=== PATIENT | male | born 1970 | race Caucasian/White ===

== ENCOUNTER 2019-08-31 14:48 | Outpatient (CLI) | payer OTHER, SELFPAY ==
--- NOTE | 2019-08-31 14:50 | ECG_ITS ---
Measurements Intervals [place] Rate: 62 P: 31 OK: 161 QRS: 42 QRSD: 92 T: 30 QT: 399 QTc: 407 Interpretive Statements SINUS RHYTHM VENTRICULAR PREMATURE COMPLEX DELAYED PRECORDIAL R/S TRANSITION BASELINE ARTIFACT- I BORDERLINE ECG Electronically Signed On 08-31-2019 15:12:23 CDT by Ad Pearl D.O.
== END 2019-08-31 14:49 | disposition home or self-care (01) ==
LOC: ANHSURGERY 14:50
PROVIDERS: PCP Family Medicine; Visit Provider Surgery
DX: I10 Essential (primary) hypertension (principal); R94.31 Abnormal electrocardiogram [ECG] [EKG]
CPT/HCPCS: 93005

== ENCOUNTER 2019-09-07 00:22 | Outpatient (CLI) | payer OTHER, SELFPAY ==
[2019-09-07 20:03] LABS: SARS-CoV-2 RNA PCR Negative
== END 2019-09-07 00:23 | disposition home or self-care (01) ==
LOC: ANHCOVIDDT 00:23
PROVIDERS: PCP Family Medicine; Visit Provider Surgery
DX: Z01.812 Encounter for preprocedural laboratory examination (principal); Z11.59 Encounter for screening for other viral diseases
CPT/HCPCS: 87635; C9803; U0003

== ENCOUNTER 2019-09-09 02:06 | Day surgery (SDC) | payer OTHER, SELFPAY ==
[2019-08-28 10:06] VITALS: BMI 26.4
--- NOTE | 2019-09-09 08:01 | PM.HPGS ---
History of Present Illness History of Present Illness Consent: Risks, benefits, and alternatives of excision of 2 subcutaneous masses have been discussed and questions answered. Patient agrees to proceed with procedure. Chief complaint: Upper Mid Back Mass/ Left Post Auricular Mass Narrative: Dalton Mena is a 49 year old male that presented recently to the office at the request of Dr Garcia for an evaluation of two masses, one at the base of his neck and one behind his left ear. He reports he has had the one at the base of his neck for many years, he reports he does not notice it much because of the location and not causing any problems. He reports it has grown some over the years. He reports the one behind his left ear he has noticed over the last few months. He reports that neither have ever drained. Denies any other masses on his body currently or in the past. He does reports he has recently had more headaches in the back of his head, and that is the reason he had mentioned these areas to his PCP. Other medical history includes diabetes, GERD, and hypertension. Review of Systems Constitutional: Constitutional: Reports no additional constitutional complaints and Denies frequent falls Eyes: Eyes: Reports as per HPI ENT: Reports Normal hearing present, Denies dizziness and Reports other (Mucous membranes moist.) Cardiovascular: Cardiovascular: Denies chest pain, Denies palpitations, Denies dyspnea and Denies dyspnea on exertion Respiratory: Respiratory: Denies hemoptysis, Denies dyspnea, Denies dyspnea on exertion and Denies wheezing Gastrointestinal: Gastrointestinal: Reports no additional gastrointestinal complaints, Reports belching and Reports heartburn ( he has known GERD and takes Omeprazole for this) Genitourinary: Genitourinary: Denies hematuria, Denies nocturia and Denies urinary frequency Musculoskeletal: Musculoskeletal: Denies deformity and Reports other ( no clubbing,cyanosis, or edema) Integumentary/Breasts: Skin/Breast: Denies new lesions, Denies rash and Denies unusual bruising Neurologic: Reports Normal hearing present, Denies dizziness, Denies frequent falls, Denies memory loss and Denies seizure-like activity Psychiatric: Psychiatric: Denies memory loss and Reports other ( normal mood and mental status) Endocrine: Endocrine: Reports as per HPI, Denies cold intolerance and Denies palpitations Comments: He has type 2 diabetes and is on metformin and glipizide. 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 Gender identity (if verbalized by the patient): Male Meds Home Medications and Allergies Home Medications Medication Instructions Recorded Confirmed Type aspirin 81 mg tablet,delayed 81 mg PO DAILY 01/22/19 08/28/19 History release omega-3 fatty acids 1,000 mg 1,000 mg PO BID PRN cap 01/22/19 09/09/19 History capsule omeprazole 40 mg capsule,delayed 40 mg PO DAILY 01/22/19 09/09/19 History release canagliflozin 300 mg tablet 300 mg PO DAILY #90 tablet 04/28/19 08/28/19 Rx irbesartan 150 mg tablet 150 mg PO DAILY #90 tablet 05/06/19 09/09/19 Rx glipizide 5 mg tablet, extended 5 mg PO DAILY #90 tablet 05/20/19 09/09/19 Rx release 24 hr metformin 500 mg tablet,extended 1,000 mg PO QPM #180 tablet 07/28/19 09/09/19 Rx release 24 hr atorvastatin 10 mg PO HS 08/28/19 08/28/19 History ibuprofen-diphenhydramine HCl 1 - 2 cap PO HS PRN 08/28/19 09/09/19 History [Ibuprofen PM] multivitamin 1 tablet PO DAILY 08/28/19 09/09/19 History niacin 1,
[2019-09-09 10:10] VITALS: BP 113/78; PULSE 74; RESP 20; TEMP 36.3; O2SAT 98
--- NOTE | 2019-09-09 10:11 | P.PNAN_ITS ---
Anes - Initial Pre Proc Eval Procedure: Operation Date: 09/09/19 12:00 Proposed Procedures p Excision Mass Upper Mid Back, Excision Mass Post Left Postauricular Area - Serafin Gracia MD Date/Time: 09/09/19 10:11 Surgeon: Serafin Gracia MD Pre Op Diagnosis: Upper Mid Back Mass/ Left Post Auricular Mass Patient Data Age: 49 Gender: M Height: 5 ft 11 in Weight: 86.16 kg Allergies Allergy/AdvReac Type Severity Reaction Status Date / Time No Known Allergies Allergy Verified 08/28/19 10:07 Home Medications Medication Instructions Recorded Confirmed Type aspirin 81 mg tablet,delayed 81 mg PO DAILY 01/22/19 08/28/19 History release omega-3 fatty acids 1,000 mg 1,000 mg PO BID PRN cap 01/22/19 08/28/19 History capsule omeprazole 40 mg capsule,delayed 40 mg PO DAILY 01/22/19 08/28/19 History release canagliflozin 300 mg tablet 300 mg PO DAILY #90 tablet 04/28/19 08/28/19 Rx irbesartan 150 mg tablet 150 mg PO DAILY #90 tablet 05/06/19 08/28/19 Rx glipizide 5 mg tablet, extended 5 mg PO DAILY #90 tablet 05/20/19 08/28/19 Rx release 24 hr metformin 500 mg tablet,extended 1,000 mg PO QPM #180 tablet 07/28/19 08/28/19 Rx release 24 hr atorvastatin 10 mg PO HS 08/28/19 08/28/19 History ibuprofen-diphenhydramine HCl 1 - 2 cap PO HS PRN 08/28/19 08/28/19 History [Ibuprofen PM] multivitamin 1 tablet PO DAILY 08/28/19 08/28/19 History niacin 1,000 mg PO HS 08/28/19 08/28/19 History Patient hx anesthesia problems: none Family hx anesthesia problems: none PMFSH Social History Social History Smoking status: Never smoker Second hand tobacco smoke exposure: No Alcohol intake: never Substance use: never Substance use type: does not use 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 Questions were solicited and answers provided to the satisfaction of the patient/family/POA.
[2019-09-09] MEDS: LACTATED RINGERS 1,000 ML 30 ML IV CONT ×2 (10:40→13:40)
[2019-09-09 10:42] LABS: Glucose Point of Care 146 (65-105)
[2019-09-09] MEDS: ceFAZolin 2 GM/D5W 50 ML 2 GM/50 ML BAG IVPB (11:57)
[2019-09-09] MEDS: BUPIVACAINE/EPINEPHRINE 0.5% 30 ML VIAL 20 ML INFILTRATE (12:39)
[2019-09-09 13:40] VITALS: BP 117/67; PULSE 64; RESP 20; O2SAT 96
--- NOTE | 2019-09-09 13:40 | PM.PROC ---
Procedure Note - Detailed Date of procedure: 09/09/19 Pre-op diagnosis: Upper Mid Back Mass/ Left Post Auricular Mass Post-op diagnosis: same Procedure performed: Excision of subcutaneous mass upper mid back (8.5 x 6.0 cm). Excision of left postauricular subcutaneous mass (3.5 x 2.0). Description of procedure: The patient was placed in the right lateral decubitus position. This exposed nicely both lesions behind his left ear and upper central back. After a surgical time out confirming patient and procedure the patient was prepped and draped in the usual sterile fashion. I 1st did the lesion behind his left ear. Local anesthetic was administered subcutaneously. The lesion measured 2.5 cm in diameter. An elliptical incision was made around the lesion taking a thin margin circumferentially. I dissected down to the deep subcutaneous tissues and then completely excised the lesion. At its base there did seem to be what appeared to be a lipoma densely adhered to the underlying muscle. This was dissected off with the skin ellipse and passed off the field after removal it measured 3.5 x 2.2 cm. Bleeding was controlled with electrocautery. The wound was closed in two layers. An un-dyed 3-0 vicryl deep dermal and then a 4-0 undyed Monocryl running subcuticular closure was completed. Surgical glue applied as dressing. The second lesion was larger and on the upper mid back. This had a small pore- like opening over it. I suspected that this is a long-standing epidermal cyst. Therefore, I decided to make a vertical oriented incision that was elliptical, including about a 4.5 x 2 cm skin ellipse that included this pore-like opening. Following instillation of local anesthetic we carefully made this incision and began dissecting it out laterally raising skin flaps both to the right into the left. I periodically added further local anesthetic surrounding this lesion both lateral and deep to it. I then dissected it off the underlying fascia from inferior to superior carefully so circumventing the entire palpable mass. I believe this is either a large epidermal cyst or perhaps a lipoma. It was densely adherent to the underlying fascia. Upon removal it measured 8.5 by 6 cm. Bovie cautery was used for hemostasis and for dissecting it out. This was closed in layers using interrupted 2-0 Vicryl in subcutaneous layer. I then used for 3-0 nylon vertical mattress sutures spaced out along the incision to give it support and we did a running subcuticular closure of 4-0 Monocryl in subcuticular plane. Telfa 4x4s and microphone tape were applied over this incision and ice was applied to it in the recovery room. Estimated blood loss was about 30 cc. Patient tolerated this well. Anesthesia: local (0.5% Marcaine with epinephrine) and other (G IV S) Surgeon: Serafin Gracia MD Coal Equipment Operator: JOSE Martinez, OR 1st assist Estimated blood loss (mL): 30 Drains: No Pathology: yes (1. Subcutaneous mass from upper mid back 2. Subcutaneous mass from left postauricular area) Complications: No immediate complications Condition: stable Disposition: same day Findings: The subcutaneous mass on the upper mid back was fairly large and did not drain any purulence during excision and seemed to be densely adhered to the underlying fascia in the midline.
[2019-09-09 14:10] VITALS: BP 118/83; PULSE 55; RESP 14
[2019-09-09 14:40] VITALS: BP 116/71; PULSE 57; RESP 14
[2019-09-09 14:42] LABS: Glucose Point of Care 109 (65-105)
== END 2019-09-09 15:00 | disposition home or self-care (01) ==
PROVIDERS: PCP Family Medicine; Visit Provider Surgery
PROC: (CPT 21012; principal; 2019-09-09 12:00)
DX: L72.0 Epidermal cyst (principal); D17.0 Benign lipomatous neoplasm of skin and subcutaneous tissue of head, face and neck; E11.9 Type 2 diabetes mellitus without complications; I10 Essential (primary) hypertension; K21.9 Gastro-esophageal reflux disease without esophagitis; Z79.84 Long term (current) use of oral hypoglycemic drugs; Z79.82 Long term (current) use of aspirin
CPT/HCPCS: 21012; 11406; 12034; 87635; 88304; C9803; J0690; J2250; J2370; J2405; J2704; J3010; J7120; U0003

== ENCOUNTER 2020-02-18 12:02 | Outpatient (CLI) | payer OTHER, SELFPAY ==
[2020-02-18 12:45] LABS: Add Urine Microscopic? YES; Appearance Urine Clear (Clear); Bilirubin Urine Negative (Negative); Blood Urine Negative (Negative); Color Urine Straw (Yellow); Glucose Urine UA 1+ mg/dL (Negative); Ketones Urine Negative (Negative); Leukocyte Esterase Ur Negative LEU/UL (Negative); Mucus Urine Rare /lpf; Nitrate Urine Negative (Negative); Protein Urine Negative (Negative); RBC Urine 0-2 /hpf (0-2); Urobilinogen Urine Negative mg/dL (<2.0); WBC Urine 0-3 /hpf
== END 2020-02-18 12:03 | disposition home or self-care (01) ==
LOC: ANHLAB 12:05
PROVIDERS: PCP Family Medicine; Visit Provider Family Medicine
DX: R30.0 Dysuria (principal)
CPT/HCPCS: 81001

== ENCOUNTER 2020-10-31 07:37 | Outpatient (CLI) | payer OTHER, SELFPAY ==
--- NOTE | ~2020-10-31 | NM_ITS ---
EXAM: NM gastric emptying study DATE: 10/31/2020 12:05 INDICATION: Unspecified abdominal pain. TECHNIQUE: A gastric emptying study was performed using the methodology of Thomas MACNIA, et al. J Nucl Med 2007; 48:568-572. The patient was given a meal consisting of 2 scrambled eggs labeled with 1 mCi Tc-99m sulfur colloid, 2 slices of toast, two packages of jam, and approximately 120 mL of water. Si multaneous anterior and posterior 1-min images of the abdomen were obtained with the patient supine a t multiple time points over a total period of 4 hours. The geometric mean of anterior and posterior v iews was determined, and the percentage retention was calculated for each time point. COMPARISON: None. FINDINGS: Gastric retention of the radiotracer-labeled meal was 83%, 70%, and 48% at the 1-hour, 2-hour, and 4- hour time points, respectively. With this technique, apparent rapid gastric emptying is suggested by <30% gastric retention at 1 hour. Delayed gastric emptying is defined by gastric retention of >90% at 1 hour, >60% retention at 2 hours, or >10% retention at 4 hours. IMPRESSION: 1. Delayed gastric emptying. Reviewed, dictated and finalized at location A.
== END 2020-10-31 07:38 | disposition home or self-care (01) ==
LOC: ANHIMG 07:42
PROVIDERS: PCP Family Medicine; Visit Provider Family Medicine
DX: R10.9 Unspecified abdominal pain (principal); R11.0 Nausea; E11.9 Type 2 diabetes mellitus without complications; K30 Functional dyspepsia
CPT/HCPCS: 78264; A9541

== ENCOUNTER 2021-01-03 02:28 | Day surgery (SDC) | payer OTHER, SELFPAY ==
[2020-12-20 13:01] VITALS: BMI 25.1
[2021-01-03 06:57] VITALS: BP 163/81; PULSE 102; RESP 18; TEMP 36.1; O2SAT 98
[2021-01-03] MEDS: LACTATED RINGERS 1,000 ML 150 ML IV CONT (07:08)
[2021-01-03 07:09] LABS: Glucose Point of Care 190 mg/dl (65-105)
[2021-01-03] MEDS: ONDANSETRON INJ 4 MG/2 ML VIAL IV PUSH (07:17)
--- NOTE | 2021-01-03 07:22 | WPDANESEPPF ---
Anes - Initial Pre Proc Eval Procedure: Operation Date: 01/03/21 08:00 Proposed Procedures p Esophagogastroduodenoscopy & Colonoscopy - Lamin Steiner MD Date/Time: 01/03/21 07:22 Surgeon: Lamin Steiner MD Pre Op Diagnosis: GERD, nausea/vomiting,family hx of colon ca Patient Data Age: 50 Gender: M Height: 1.82 m Weight: 80.7 kg Last Vital Signs Temp 36.1 C L 01/03/21 06:57 Pulse 102 H 01/03/21 06:57 Resp 18 01/03/21 06:57 BP 163/81 H 01/03/21 06:57 Pulse Ox 98 01/03/21 06:57 Allergies Allergy/AdvReac Type Severity Reaction Status Date / Time amoxicillin [From Augmentin] AdvReac Rash Verified 01/03/21 06:55 clavulanic acid AdvReac Rash Verified 01/03/21 06:55 [From Augmentin] Home Medications Medication Instructions Recorded Confirmed Type metformin 500 mg tablet,extended 1,000 mg PO QPM tablet 07/25/20 12/20/20 History release 24 hr niacin 1,000 mg tablet,extended 1,000 mg PO HS #90 tablet 07/28/20 12/20/20 Rx release 24 hr losartan 100 1 tablet PO DAILY #90 tablet 09/19/20 12/20/20 Rx mg-hydrochlorothiazide 25 mg tablet omeprazole 40 mg capsule,delayed 40 mg PO DAILY #90 cap 10/17/20 12/20/20 Rx release erythromycin 250 mg tablet 250 mg PO BID PRN #30 tablet 12/12/20 12/20/20 Rx aspirin [Aspirin Child] 81 mg PO DAILY 12/20/20 12/20/20 History atorvastatin 10 mg tablet 10 mg PO QHS #90 tablet 12/20/20 01/03/21 Rx glipizide 20 mg PO DAILY 12/20/20 12/20/20 History ibuprofen-diphenhydramine HCl 1 cap PO HS PRN 12/20/20 12/20/20 History [Ibuprofen PM] Laboratory Tests 01/03/21 07:04 POC Capillary Glucose 190 mg/dl H mg/dl (65-105) Patient hx anesthesia problems: none Family hx anesthesia problems: none Results Review: All pre-operative results and documents have been reviewed as part of the pre-operative evaluation. [facility] Past Medical History Medical History (Updated 12/12/20 @ 15:44 by Lamin Steiner MD) Alopecia areata Dyslipidemia Epidermal cyst Family history of colon cancer in mother GERD (gastroesophageal reflux disease) (Unknown) Ingrown right greater toenail Lipoma Type 2 diabetes mellitus without complication, without long-term current use of insulin (Unknown) Surgical History Surgical History History of epidermal inclusion cyst excision 09/2019 - left scalp Hx of colonoscopy (Unknown) x2 S/P excision of lipoma 09/2019 - upper back Family History Family History Grandparent Hypertension Family history of cardiovascular disease Family history of Alzheimer's disease Mother Carcinoma of colon, Onset Age: 57 Family history of malignant neoplasm of breast in first degree relative, Onset Age: 50 Father COPD (chronic obstructive pulmonary disease) Hypertension Social History Social History Smoking status: Never smoker Second hand tobacco smoke exposure: No Alcohol intake: never Substance use: never Substance use type: does not use 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 Informed Consent: The patient's anesthetic plan and its attendant risks and benefits were discussed with the patient/family/POA. Questions were solicited and answers provided to the satisfaction
--- NOTE | 2021-01-03 07:51 | WPDHPUPDATE1 ---
History and Physical Update Update Date/Time: 01/03/21 07:51 History and Physical has been reviewed, including an updated exam of the patient. There are NO changes in the patient's condition. Risks, benefits, and alternatives have been discussed and questions answered. Patient agrees to proceed with procedure.
[2021-01-03 08:35] VITALS: BP 96/69; PULSE 90; RESP 18; O2SAT 96
[2021-01-03 08:45] VITALS: BP 110/76; PULSE 87; RESP 16; O2SAT 99
== END 2021-01-03 09:10 | disposition home or self-care (01) ==
PROVIDERS: PCP Family Medicine; Visit Provider Internal Medicine Gastroenterology
PROC: 0DJ08ZZ Inspection of Upper Intestinal Tract, Via Natural or Artificial Opening Endoscopic (ICD-10-PCS; CPT 43235; principal; 2021-01-03 08:00)
DX: Z12.11 Encounter for screening for malignant neoplasm of colon (principal); Z80.0 Family history of malignant neoplasm of digestive organs; R11.2 Nausea with vomiting, unspecified; K21.9 Gastro-esophageal reflux disease without esophagitis; K59.00 Constipation, unspecified; L63.9 Alopecia areata, unspecified; E11.9 Type 2 diabetes mellitus without complications; E11.43 Type 2 diabetes mellitus with diabetic autonomic (poly)neuropathy; K31.84 Gastroparesis; K57.30 Diverticulosis of large intestine without perforation or abscess without bleeding; Z79.82 Long term (current) use of aspirin; Z79.84 Long term (current) use of oral hypoglycemic drugs
CPT/HCPCS: 43239; G0105; 82948; 87081; J2405; J7120

== ENCOUNTER 2021-06-05 11:21 | Outpatient (CLI) | payer OTHER, SELFPAY ==
[2021-06-05 16:45] LABS: Anion Gap 7 mmol/L (8-16); Blood Urea Nitrogen 19 mg/dL (9-20); Calcium 9.1 mg/dL (8.4-10.2); Carbon Dioxide 28 mmol/L (22-30); Chloride 104 mmol/L (98-107); Estimated Glomerular Filt Rate > 60; Glucose 228 mg/dL (65-110); HDL Direct 29 mg/dL; Potassium 3.5 mmol/L (3.4-5.0); Sodium 139 mmol/L (137-145)
[2021-06-05 17:04] LABS: Creatinine Urine 61.3 mg/dL
[2021-06-05 17:07] LABS: LDL Cholesterol Direct 60 mg/dL
[2021-06-05 17:47] LABS: MALB Creatinine Ratio < 9.8 mg/g (0-30); Microalbumin Urine Random < 6.0 mg/L (0-16.7)
[2021-06-07 06:35] LABS: C-Peptide 3.95 ng/mL (0.80-3.85)
[2021-06-08 14:40] LABS: Glutamic acid decarboxylase AA <5 IU/mL (<5)
== END 2021-06-05 11:22 | disposition home or self-care (01) ==
LOC: ANHWCLAB 11:24
PROVIDERS: PCP Family Medicine; Referring Provider Internal Medicine Endocrinology, Diabetes & Metabolism; Visit Provider Internal Medicine Endocrinology, Diabetes & Metabolism
DX: E11.43 Type 2 diabetes mellitus with diabetic autonomic (poly)neuropathy (principal); K31.84 Gastroparesis
CPT/HCPCS: 36415; 80048; 82043; 83718; 83721; 84681; 86341

== ENCOUNTER 2021-09-11 09:17 | Outpatient (RCR) | payer OTHER, SELFPAY | END 2021-11-27 10:51 | disposition home or self-care (01) | LOC: ANHDMC 09:17 | PROVIDERS: PCP Family Medicine; Visit Provider Internal Medicine Endocrinology, Diabetes & Metabolism | DX: E11.9 Type 2 diabetes mellitus without complications (principal); Z71.89 Other specified counseling | CPT/HCPCS: G0108 ==

== ENCOUNTER 2022-04-30 10:08 | Outpatient (CLI) | payer OTHER, SELFPAY ==
[2022-04-30 10:49] LABS: Kit Draw Collected
== END 2022-04-30 10:09 | disposition home or self-care (01) ==
LOC: ANHGOSHLAB 10:09
PROVIDERS: PCP Family Medicine; Visit Provider Nurse Practitioner Family
DX: Z00.00 Encounter for general adult medical examination without abnormal findings (principal); E78.5 Hyperlipidemia, unspecified; Z12.5 Encounter for screening for malignant neoplasm of prostate; I10 Essential (primary) hypertension; E11.9 Type 2 diabetes mellitus without complications; E55.9 Vitamin D deficiency, unspecified
CPT/HCPCS: 36415

== ENCOUNTER → 2022-10-09 08:07 | Outpatient (CLI) | payer OTHER, SELFPAY ==
--- NOTE | ~2022-10-09 | XR_ITS ---
Left Shoulder Technique: AP and axillary views were obtained. Clinical History: Pain Findings: No fracture or dislocation is seen. Osseous alignment is anatomic. The glenohumeral and acr omioclavicular joint spaces are preserved. Soft tissues are unremarkable. Impression: Unremarkable left shoulder radiographs. Reviewed, dictated and finalized at [facility]. Impression: Unremarkable left shoulder radiographs.
== END ==
PROVIDERS: PCP Family Medicine; Visit Provider Nurse Practitioner Family
DX: M79.602 Pain in left arm (principal)
CPT/HCPCS: 73030

== ENCOUNTER 2022-11-11 13:14 | Emergency (ER) | payer OTHER, SELFPAY ==
--- NOTE | ~2022-11-11 | CT_ITS ---
EXAMINATION: CTA neck DATE: 11/11/2022 17:50 INDICATION: Neck injury TECHNIQUE: Computed tomographic angiography (CTA) of the neck was performed with 100 mL Omnipaque-350 intravenous contrast. Automated exposure control and iterative reconstruction technique were noemy greer . The dose-length product was 566.90 mGy-cm. Maximum intensity projection and volume rendered 3D- reconstructions were created by the technologist on a separate workstation. COMPARISON: CT C-spine and soft tissue neck, same date. FINDINGS: CTA NECK: Aortic arch and proximal great vessels: Normal arch. Right common carotid, carotid bifurcation, and internal carotid artery: No plaque.There is 0% stenosi s of the proximal right internal carotid artery relative to normal distal artery lumen diameter (NASC ET criteria). Left common carotid, carotid bifurcation, and internal carotid artery: No plaque.There is 0% stenosis of the proximal left internal carotid artery relative to normal distal artery lumen diameter (NASCET criteria). Vertebral arteries: No significant plaque or stenosis. No evidence of dissection or other injury. Kristal tebral arteries co-dominant. Other findings: None. IMPRESSION: Normal CTA neck findings. The prior CT findings were likely related to beam hardening artifact. Reviewed, dictated and finalized at location K. IMPRESSION: Normal CTA neck findings. The prior CT findings were likely related to beam liset dening artifact.
--- NOTE | ~2022-11-11 | CT_ITS ---
EXAMINATION: CT soft tissue neck w con DATE: 11/11/2022 15:45 INDICATION: TECHNIQUE: Computed tomography (CT) of the neck was performed with 75 mL Omnipaque-350 intravenous co ntrast. The dose-length product was 575.29 mGy-cm. COMPARISON: None FINDINGS: 6 mm right thyroid nodule, requiring no additional evaluation at this time. The submandibular and pa rotid glands are symmetric. There is no cervical lymphadenopathy. There are no masses identified. The superior mediastinum is unremarkable. The airway is unremarkable. Parapharyngeal and pre-g lottic fat planes are preserved. Possible weblike defect in the V3 segment of the right vertebral a rtery (coronal image 63/112), which may extend into the V4 segment. The orbits are unremarkable. V olume loss and opacification of the left maxillary sinus, presumably chronic. The remaining aerated s paces are clear. Visualized lung parenchyma is clear. The hyoid bone is intact. Fractures of the martin perior horns of the thyroid cartilage. Soft tissue contusion/scar in the right posterior neck. IMPRESSION: Possible dissection of the V3 segment of the right vertebral artery, extending into the V4 segment. R ecommend dedicated CTA of the neck for further evaluation. Fractures of the superior horns of the thyroid cartilage. Results reported telephonically to Dr. King by Dr. Henao at 4:34 PM on 11/11/2022. Reviewed, dictated and finalized at location K. IMPRESSION: Possible dissection of the V3 segment of the right vertebral artery, extending into the V4 segment. Recommend dedicated CTA of the neck for further evaluation . Fractures of the superior horns of the thyroid cartilage. Results reported telephonically to Dr. King by Dr. Henao at 4:34 PM on 11/02.
--- NOTE | ~2022-11-11 | CT_ITS ---
EXAMINATION: CT cervical spine wo con DATE: 11/11/2022 15:44 INDICATION: Injury to neck TECHNIQUE: Computed tomography (CT) of the cervical spine was performed without intravenous contrast. Automated exposure control and iterative reconstruction technique were employed. The dose-length pro duct was 575.29 mGy-cm (also includes the dose from the concurrent CT soft tissue neck). COMPARISON: X-ray C-spine 11/19/2007; CT soft tissue neck 11/11/2022. FINDINGS: Vertebral Body Alignment: Intact. Craniocervical and atlantoaxial alignment: Severe degenerative change. Alignment intact. Osseous structures/fracture: No evidence of a lytic or blastic process in the visualized spine. No e vidence of acute fracture. Cervical soft tissues: Please see the concurrent CT soft tissue neck report. Degenerative changes: Mild multilevel degenerative disc disease and facet arthropathy. No severe cent ral canal or neural foraminal narrowing. IMPRESSION: No acute fracture or traumatic malalignment in the cervical spine. Reviewed, dictated and finalized at location K.
[2022-11-11 13:37] VITALS: BP 119/79; PULSE 74; RESP 20; TEMP 36.4; O2SAT 99
[2022-11-11 14:52] LABS: Anion Gap 7 mmol/L (8-16); Blood Urea Nitrogen 22 mg/dL (9-20); Calcium 9.5 mg/dL (8.4-10.2); Carbon Dioxide 31 mmol/L (22-30); Chloride 101 mmol/L (98-107); Estimated CRCL calculation 88 ml/min; Estimated Glomerular Filt Rate > 60; Glucose 120 mg/dL (65-110); Potassium 4.3 mmol/L (3.4-5.0); Sodium 139 mmol/L (137-145)
--- NOTE | 2022-11-11 16:36 | ED.GENADULT ---
HPI - General Adult General Chief complaint: Unspecified Stated complaint: struck in throat Time Seen by Provider: 11/11/22 14:11 History of Present Illness HPI narrative: This is a 52-year-old male, past history of diabetes, presenting to the emergency department after being struck by metal bar in the anterior neck. The patient states he was repairing a lawnmower, when a metal piece flew out and hit him in the neck. He complains of sore-like pain with swallowing and speaking, rated 4/10 without radiation, located just left of the cricoid cartilage, but he has no other complaints. Related Data Home Medications Medication Instructions Recorded Confirmed aspirin 81 mg chewable tablet 81 mg PO DAILY 12/20/20 08/23/22 ibuprofen 200 mg-diphenhydramine 1 cap PO HS Sleep 08/28/21 08/23/22 HCl 25 mg capsule (Ibuprofen PM) omeprazole 40 mg capsule,delayed 40 mg PO DAILY PRN 08/28/21 08/23/22 release cholecalciferol (vitamin D3) 125 125 mcg PO DAILY 04/30/22 08/23/22 mcg (5,000 unit) capsule Allergies Allergy/AdvReac Type Severity Reaction Status Date / Time amoxicillin [From Augmentin] AdvReac Rash Verified 11/11/22 13:40 clavulanic acid AdvReac Rash Verified 11/11/22 13:40 [From Augmentin] Review of Systems Review of Systems: All systems reviewed & are unremarkable except as noted in HPI and below (HPI) PMFSH Past Medical History Medical History Alopecia areata Chronic cough Diabetic gastroparesis Diverticulosis Dyslipidemia Epidermal cyst Essential (primary) hypertension (Unknown) Family history of colon cancer in mother GERD (gastroesophageal reflux disease) (Unknown) Ingrown right greater toenail Lipoma Low vitamin D level Type 2 diabetes mellitus without complication, without long-term current use of insulin (Unknown) Surgical History Surgical History H/O endoscopy History of epidermal inclusion cyst excision 09/2019 - left scalp Hx of colonoscopy (Unknown) x2 S/P excision of lipoma 09/2019 - upper back Family History Family History Grandparent Hypertension Family history of cardiovascular disease Family history of Alzheimer's disease Mother Carcinoma of colon, Onset Age: 57 Family history of malignant neoplasm of breast in first degree relative, Onset Age: 50 Father COPD (chronic obstructive pulmonary disease) Hypertension Social History Social History Social History: [place] is , 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 HEAD: Normocephalic, atraumatic. EYES: PERRLA and EOMI. ENT: Nares clear, no rhinorrhea or epistaxis. Mucous membranes moist. Oropharynx without tonsillar hypertrophy exudate or other lesions. NECK: Supple. A small amount of swelling in an area of approximately 3 mm of ecchymosis is noted just to the left of the cricoid cartilage. There is no noted crepitus, stridor or expanding hematoma. No adenopathy or masses. No carotid bruits or JVD. No midline spine ten
[2022-11-11 18:38] VITALS: BP 114/82; PULSE 71; RESP 18; TEMP 36.6; O2SAT 100
== END 2022-11-11 21:08 | disposition home or self-care (01) ==
PROVIDERS: Emergency Provider Preventive Medicine Aerospace Medicine; PCP Family Medicine
DX: S12.8XXA Fracture of other parts of neck, initial encounter (principal); K21.9 Gastro-esophageal reflux disease without esophagitis; E11.9 Type 2 diabetes mellitus without complications; Z79.4 Long term (current) use of insulin; I10 Essential (primary) hypertension; W20.8XXA Other cause of strike by thrown, projected or falling object, initial encounter
CPT/HCPCS: 36415; 70491; 70498; 72125; 80048; 99284; Q9967

== ENCOUNTER 2022-11-27 08:00 | Outpatient (RCR) | payer OTHER, SELFPAY ==
[2022-09-11 12:34] VITALS: BP_SYST 125
--- NOTE | 2022-09-11 15:35 | PTOPEVAL1 ---
Assessment and note entered by Devin Sterling, PT Evaluation Information Assessment Status Evaluation Diagnosis Left Shoulder Pain Onset 12/02/21 Subjective Information States that he has been getting a lot of pain with sleepin julia his side and raching over his head. Pushing and pulling also bothers his shoulder. Pain goes into his elbow but never down to his hand. He started wearing a blood sugar sensor on his left shoulder and he is wondering if that contributes. 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 Reported Pain Level Pain Score 7: Self Report Additional Pain Score Comments Pain in L Lateral shoulder 0/10 at rest Increases to 7/10 with overhead activity Assessment PT Clinical Summary Patient presents with signs and symptoms consistent with shoulder impingement. Strength is sufficient enough to rule out significant RTC tear . Showing capsular pattern in ROM and postural deficits likely causing chronic RTC trauma.Will benefit from skilled therapy to address postural deficits and objective deficits to maximize subacromial space and functional reach. Plan of Care Interventions Electrical Stimulation,Manual Therapy,Therapeutic Activities,Therapeutic Exercise PT Services Indicated Yes Treatment Frequency and 2x/week for 8 visits Duration These treatments will address the objective and functional deficits as defined above. The patient will be advanced safely and appropriately in order for the patient to progress towards his/her prior level of function. Additional exercises will be introduced and as well as a comprehensive home exercise program upon discharge, if needed, ?to ensure carryover of functional gains achieved in the clinic. This treatment plan has been reviewed and agreement upon by the patient.
--- NOTE | 2022-09-11 15:36 | OPREHPOC ---
Outpatient Therapy Plan of Care This is a Multidisciplinary Plan of Care that may contain components documented by all disciplines (PT, OT, and ST.) PT Problem 1 PT Problem #1 Knowledge Deficit PT Goal 1 Goal Patient will be independent with postural reinforcement program Target Visit 8 PT Problem 2 PT Problem #2 Pain PT Goal 1 Goal Report no pain in morning in shoulder with regular regimented sleepng habits PT Problem 3 PT Problem #3 Impaired Range of Motion PT Goal 1 Goal Patient will demonstrate 170 degrees of Left shoulder flexion for overhead reaching Target Visit 8 PT Problem 4 PT Problem #4 Impaired Range of Motion PT Goal 1 Goal Patient will demonstrate 80 degrees of L shoulder ER for improved self care Target Visit 8 PT Problem 5 PT Problem #5 Impaired Strength PT Goal 1 Goal Improve gross L shoulder strength to 4+/5 for iprove stability with lifting activity
[2022-10-08 07:59] VITALS: BP_SYST 125
--- NOTE | 2022-10-08 09:00 | PTOPPROG ---
Assessment and note entered by Devin Sterling, PT Evaluation Information Assessment Status Progress Diagnosis Left Shoulder Pain Onset 12/02/21 Subjective Information Overall he feels he is making progress with shoulder motion and strength. HE has never done rotator cuff isolated exercises and feels that they are really helping his functional progress. No concerns at this time as long as he continues to see progress. Would like his mobility to be better and more comfortable. Still having a lot of trouble reaching overhead. Assessment PT Clinical Summary We have seen some progress in shoulder ROM and strength. He is still significantly tender in gross shoulder area and continues to show signs and symptoms of impingement. Will continue to benefit from skilled therapy to continue to work towards functional goals. Strength and ROM remain significant functional deficits. Plan of Care Interventions Electrical Stimulation,Manual Therapy,Therapeutic Activities,Therapeutic Exercise PT Services Indicated Yes Treatment Frequency and 2x/week for 8 visits Duration These treatments will address the objective and functional deficits as defined above. The patient will be advanced safely and appropriately in order for the patient to progress towards his/her prior level of function. Additional exercises will be introduced and as well as a comprehensive home exercise program upon discharge, if needed, ?to ensure carryover of functional gains achieved in the clinic. This treatment plan has been reviewed and agreement upon by the patient.
--- NOTE | 2022-10-08 09:04 | OPREHPOC ---
Outpatient Therapy Plan of Care This is a Multidisciplinary Plan of Care that may contain components documented by all disciplines (PT, OT, and ST.) PT Problem 1 PT Problem #1 Knowledge Deficit PT Goal 1 Goal Patient will be independent with postural reinforcement program Target Visit 8 Progress Met Comment Reflects copliance and understanding PT Problem 2 PT Problem #2 Pain PT Goal 1 Goal Report no pain in morning in shoulder with regular regimented sleepng habits Progress Partially Met Comment Improved but not absent PT Problem 3 PT Problem #3 Impaired Range of Motion PT Goal 1 Goal Patient will demonstrate 170 degrees of Left shoulder flexion for overhead reaching Target Visit 8 Progress Partially Met Comment Progressing PT Problem 4 PT Problem #4 Impaired Range of Motion PT Goal 1 Goal Patient will demonstrate 80 degrees of L shoulder ER for improved self care Target Visit 8 Progress Partially Met Comment Progressing PT Problem 5 PT Problem #5 Impaired Strength PT Goal 1 Goal Improve gross L shoulder strength to 4+/5 for improve stability with lifting activity Progress Partially Met Comment Excellent progress at this time in all planes. Continues to show deficit.
[2022-11-01 09:51] VITALS: BP_SYST 125
--- NOTE | 2022-11-01 11:11 | OPREHPOC ---
Outpatient Therapy Plan of Care This is a Multidisciplinary Plan of Care that may contain components documented by all disciplines (PT, OT, and ST.) PT Problem 1 PT Problem #1 Knowledge Deficit PT Goal 1 Goal Patient will be independent with postural reinforcement program Target Visit 8 Progress Met Comment Reflects copliance and understanding PT Problem 2 PT Problem #2 Pain PT Goal 1 Goal Report no pain in morning in shoulder with regular regimented sleeping habits Progress Partially Met Comment Improved but not absent PT Problem 3 PT Problem #3 Impaired Range of Motion PT Goal 1 Goal Patient will demonstrate 170 degrees of Left shoulder flexion for overhead reaching Target Visit 8 Progress Partially Met Comment Progressing, still showing limitation consistent wth last progress note. Less pain at end range. PT Problem 4 PT Problem #4 Impaired Range of Motion PT Goal 1 Goal Patient will demonstrate 80 degrees of L shoulder ER for improved self care Target Visit 8 Progress Partially Met Comment Progressing. Increased ROM this progress note. PT Problem 5 PT Problem #5 Impaired Strength PT Goal 1 Goal Improve gross L shoulder strength to 4+/5 for improve stability with lifting activity Progress Partially Met Comment Continued progress at this time in all planes. Continues to show deficit.
--- NOTE | 2022-11-01 11:11 | PTOPPROG ---
Assessment and note entered by Devin Sterling, PT Evaluation Information Assessment Status Progress Diagnosis Left Shoulder Pain Onset 12/02/21 Subjective Information States that overall he is feeling like he is doing a lot better than he was originally prior to therapy. Still feels somewhat limited in mobility. He has not had any orthopedic consultation and is open to it because he would like to continue to improve but is unsure anatomically if he can. He is still really struggling to reach high over his head and away from his body. Assessment PT Clinical Summary Mr. Mena has shown some improvement in strength and selective improvement in specific ROM (mostly internal and external rotation). Still showing a lot of difficulty with flexion and abduction with a painful firm end feel. I am suspecting the possibility of structural impingement and have recommended orthopedic consult and potentially imaging to assess anatomical barriers. Will continue to benefit from skilled therapy as he has made slow but positive progress conservatively. Plan of Care Interventions Electrical Stimulation,Manual Therapy,Therapeutic Activities,Therapeutic Exercise PT Services Indicated Yes Treatment Frequency and 1x/week for 4 visits Duration These treatments will address the objective and functional deficits as defined above. The patient will be advanced safely and appropriately in order for the patient to progress towards his/her prior level of function. Additional exercises will be introduced and as well as a comprehensive home exercise program upon discharge, if needed, ?to ensure carryover of functional gains achieved in the clinic. This treatment plan has been reviewed and agreement upon by the patient.
[2022-11-27 07:59] VITALS: BP_SYST 125
== END 2022-12-10 23:59 | disposition home or self-care (01) ==
LOC: ANHGOSHPT 08:00
PROVIDERS: PCP Family Medicine; Visit Provider Internal Medicine Endocrinology, Diabetes & Metabolism
DX: M79.602 Pain in left arm (principal)
CPT/HCPCS: 97110; 97112; 97140; 97161

== ENCOUNTER → 2022-11-28 11:18 | Outpatient (CLI) | payer OTHER, SELFPAY ==
--- NOTE | ~2022-11-28 | MR_ITS ---
MRI of the left shoulder Technique: Axial proton-density fat-sat images, coronal proton density fat-sat and T2 fat-sat images, and sagittal T1-weighted and T2 fat-sat images were acquired. Clinical History: Pain Findings: There is no significant degenerative change at the AC joint. Coracoclavicular, coracoacromi al, and coracohumeral ligaments are intact. Supraspinatus and infraspinatus tendons are intact, without partial or full-thickness tear. Subscapul lani tendon is intact. Tendon of the long head of the biceps is intact. No definite labral tear identified. Probable sublabral foramen at the anterosuperior portion. Inferior glenohumeral ligament demonstrates mild thickening and increased signal. No significant dege nerative change or effusion of the glenohumeral joint. No fluid distention of the subacromial/subdelt oid bursa. No muscle atrophy or edema. Impression: Probable mild thickening and increased signal of the inferior glenohumeral ligament. This could refle ct adhesive capsulitis. Correlate clinically. Reviewed, dictated and finalized at location . Impression: Probable mild thickening and increased signal of the inferior glenohumeral liga ment. This could reflect adhesive capsulitis. Correlate clinically.
== END ==
PROVIDERS: PCP Family Medicine; Visit Provider Physician Assistant Surgical
DX: M25.512 Pain in left shoulder (principal)
CPT/HCPCS: 73221

== ENCOUNTER 2022-12-25 14:40 | Outpatient (CLI) | payer OTHER, SELFPAY ==
[2022-12-25 19:04] LABS: Basophils Absolute Auto 0.1 K/mm3 (0.0-0.1); Basophils Percent Auto 0.9 % (0.2-1.2); Eosinophils Absolute Auto 0.1 K/mm3 (0-0.3); Eosinophils Percent Auto 0.6 % (0-4.4); Hematocrit 50.9 % (42.0-52.0); Immature Granulocyte Absolute 0.03 K/mm3 (0.00-0.031); Immature Granulocyte Percent A 0.3 % (0-0.5); Lymphocytes Absolute Auto 1.94 K/mm3 (0.9-3.2); Lymphocytes Percent Auto 22.1 % (18.3-44.2); Mean Corpuscular HGB Conc 33.4 g/dl (32-36); Mean Corpuscular Hemoglobin 30.2 pg (26-34); Mean Corpuscular Volume 90.6 fl (80-100); Mean Platelet Volume 10.2 fl (7.4-10.4); Monocytes Absolute Auto 0.8 K/mm3 (0.1-0.6); Neutrophils Absolute Auto 5.9 K/mm3 (1.3-6.7); Neutrophils Percent Auto 67.1 % (45.5-73.1); Platelet Count Result 312 k/mm3 (150-375); Red Blood Count 5.62 M/mm3 (4.6-6.20); Red Cell Distribution Width 12.8 % (11.5-14.5); White Blood Count 8.8 K/mm3 (4.5-10.0)
[2022-12-25 19:25] LABS: Alanine Aminotransferase 53 U/L (6-50); Albumin Level 4.9 g/dL (3.5-5.1); Alkaline Phosphatase 94 U/L (38-126); Anion Gap 11 mmol/L (8-16); Aspartate Amino Transferase 67 U/L (17-59); Bilirubin,Total 0.9 mg/dL (0.2-1.3); Blood Urea Nitrogen 20 mg/dL (9-20); Calcium 9.5 mg/dL (8.4-10.2); Carbon Dioxide 28 mmol/L (22-30); Chloride 96 mmol/L (98-107); Estimated Glomerular Filt Rate > 60; Glucose 115 mg/dL (65-110); Potassium 3.4 mmol/L (3.4-5.0); Sodium 135 mmol/L (137-145)
== END 2022-12-25 14:41 | disposition home or self-care (01) ==
LOC: ANHGOSHLAB 14:42
PROVIDERS: PCP Family Medicine; Visit Provider Internal Medicine Endocrinology, Diabetes & Metabolism
DX: E78.5 Hyperlipidemia, unspecified (principal); D75.1 Secondary polycythemia; R74.8 Abnormal levels of other serum enzymes; Z71.3 Dietary counseling and surveillance
CPT/HCPCS: 36415; 80053; 85025

== ENCOUNTER 2023-02-18 08:00 | Outpatient (RCR) | payer OTHER, SELFPAY ==
--- NOTE | 2022-12-18 11:52 | OPREHPOC ---
Outpatient Therapy Plan of Care This is a Multidisciplinary Plan of Care that may contain components documented by all disciplines (PT, OT, and ST.) PT Problem 1 PT Problem #1 Knowledge Deficit PT Goal 1 Goal Independent with capsular stretching program. Target Visit 4 PT Problem 2 PT Problem #2 Pain PT Goal 1 Goal Report no pain with pectoral stretching indicating reduced impingement position. Target Visit 8 PT Problem 3 PT Problem #3 Impaired Range of Motion PT Goal 1 Goal Improve L shoulder flexion Active ROM to 165 degrees to assist with active reach Target Visit 8 Comment Improve L shoulder External Rotation Active ROM to 80 degrees to assist with self care PT Problem 4 PT Problem #4 Impaired Strength PT Goal 1 Goal Demonstrate ability to perform 8# lift overhead without pain x 10 for improve functional capacity for lifting.
--- NOTE | 2022-12-18 11:53 | PTOPEVAL1 ---
Assessment and note entered by Devin Sterling, PT Evaluation Information Assessment Status Evaluation Diagnosis Right adhesive capsulitis, Right shoulder pain, muscle weakness Onset August 2021 Subjective Information Reports that he followed up with MD and received a cortisone injection. He was instructed to return to therapy for likely impingement and adhesive capsulitis. MD would like to stay conservative for now. He is still having significant pain but not having the really sharp pains that he was having prior to the last rouind of therapy. Reported Pain Level Pain Score 3: Self Report Assessment PT Clinical Summary Patient demonstrate continued significant capsular restriction with reach and self care. Will benefit from skilled therapy to address signs and symptoms consistent with adhesive capsulitis. Strength is improved from last therapy session indicating likely contribution of cortisone injection towards pain reduction. Plan of Care Interventions Hot Pack/Cold Pack,Manual Therapy,Neuro Re- education,Therapeutic Activities,Therapeutic Exercise PT Services Indicated Yes Treatment Frequency and 2x/week for 4 weeks Duration These treatments will address the objective and functional deficits as defined above. The patient will be advanced safely and appropriately in order for the patient to progress towards his/her prior level of function. Additional exercises will be introduced and as well as a comprehensive home exercise program upon discharge, if needed, ?to ensure carryover of functional gains achieved in the clinic. This treatment plan has been reviewed and agreement upon by the patient.
--- NOTE | 2023-01-17 10:09 | PTOPPROG ---
Assessment and note entered by Devin Sterling, PT Evaluation Information Assessment Status Progress Diagnosis Right adhesive capsulitis, Right shoulder pain, muscle weakness Onset August 2021 Subjective Information Reports that this time around with therapy he feels he is making excellent progress with range and comfort with lifting activity. Overall still feels like he has improvement to make but will not be able to be as consistent in therapy secondary to vacation and work. Still feel she needs some guidance. Assessment PT Clinical Summary Patient has made great strides in shoulder ROM and strength. This is likely related to the aggressive therapy and anti-inflammatory contribution. 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 Patient availability will be limited for next month and we want to ensure that he is not losing ground. Follows up with MD today's for another cortisone injection which will give us the opportunity to continue to maximize objective gains and function. Plan of Care Interventions Hot Pack/Cold Pack,Manual Therapy,Neuro Re- education,Therapeutic Activities,Therapeutic Exercise PT Services Indicated Yes Treatment Frequency and 1x/week for 4 weeks Duration These treatments will address the objective and functional deficits as defined above. The patient will be advanced safely and appropriately in order for the patient to progress towards his/her prior level of function. Additional exercises will be introduced and as well as a comprehensive home exercise program upon discharge, if needed, ?to ensure carryover of functional gains achieved in the clinic. This treatment plan has been reviewed and agreement upon by the patient.
--- NOTE | 2023-01-17 10:13 | OPREHPOC ---
Outpatient Therapy Plan of Care This is a Multidisciplinary Plan of Care that may contain components documented by all disciplines (PT, OT, and ST.) PT Problem 1 PT Problem #1 Knowledge Deficit PT Goal 1 Goal Independent with caspular stretching program. Target Visit 4 Progress Met PT Problem 2 PT Problem #2 Pain PT Goal 1 Goal Report no pain with pectoral stretching indicating reduced impingement position. Target Visit 8 Progress Partially Met PT Problem 3 PT Problem #3 Impaired Range of Motion PT Goal 1 Goal Improve L shoulder flexion Active ROM to 165 degrees to assist with active reach Target Visit 8 Progress Partially Met PT Goal 2 Goal Improve L shoulder External Rotation Active ROM to 80 degrees to assist with self care Target Visit 8 Progress Partially Met PT Problem 4 PT Problem #4 Impaired Strength PT Goal 1 Goal Demonstrate ability to perform 8# lift overhead without pain x 10 for improve functional capacity for lifting. Target Visit 8 Progress Partially Met Comment Some pain at this time with repitition
--- NOTE | 2023-02-18 08:59 | PTOPDC ---
Assessment and note entered by Devin Sterling, PT Evaluation Information Assessment Status Discharge Diagnosis Right adhesive capsulitis, Right shoulder pain, muscle weakness Onset August 2021 Subjective Information Reports that he is very pleased with the progress he has made. He feels is is full to near full functional. Occasionally has pain but nothing like it was prior to the last round of therapy. Feels comfortable with HEP at this time and eels ready for discharge to self care. Reported Pain Level Pain Score 1: Self Report Assessment PT Clinical Summary Patient has met all goals for therapy at this time and suitable for discharge. He has seen remarkable progress in both shoulder motion and strength. Reflects compliance and understand of HEP to continue to improve/maintain progress. Plan of Care PT Services Indicated D/C to HEP
--- NOTE | 2023-02-18 08:59 | OPREHPOC ---
Outpatient Therapy Plan of Care This is a Multidisciplinary Plan of Care that may contain components documented by all disciplines (PT, OT, and ST.) PT Problem 1 PT Problem #1 Knowledge Deficit PT Goal 1 Goal Independent with capsular stretching program. Target Visit 4 Progress Met PT Problem 2 PT Problem #2 Pain PT Goal 1 Goal Report no pain with pectoral stretching indicating reduced impingement position. Target Visit 8 Progress Met PT Problem 3 PT Problem #3 Impaired Range of Motion PT Goal 1 Goal Improve L shoulder flexion Active ROM to 165 degrees to assist with active reach Target Visit 8 Progress Met PT Goal 2 Goal Improve L shoulder External Rotation Active ROM to 80 degrees to assist with self care Target Visit 8 Progress Met PT Problem 4 PT Problem #4 Impaired Strength PT Goal 1 Goal Demonstrate ability to perform 8# lift overhead without pain x 10 for improve functional capacity for lifting. Target Visit 8 Progress Met
== END 2023-02-18 09:37 | disposition home or self-care (01) ==
LOC: ANHPT 08:00
PROVIDERS: PCP Family Medicine; Visit Provider Orthopaedic Surgery
DX: M75.02 Adhesive capsulitis of left shoulder (principal); M25.512 Pain in left shoulder
CPT/HCPCS: 97110; 97140; 97161; 97530

== ENCOUNTER 2023-04-29 08:56 | Outpatient (CLI) | payer OTHER, SELFPAY ==
[2023-04-29 16:23] LABS: Basophils Absolute Auto 0.1 K/mm3 (0.0-0.1); Basophils Percent Auto 1.3 % (0.2-1.2); Eosinophils Absolute Auto 0.1 K/mm3 (0-0.3); Eosinophils Percent Auto 1.6 % (0-4.4); Hematocrit 49.7 % (42.0-52.0); Hemoglobin 16.2 g/dL (14.0-18.0); Immature Granulocyte Absolute 0.02 K/mm3 (0.00-0.031); Immature Granulocyte Percent A 0.3 % (0-0.5); Lymphocytes Absolute Auto 1.68 K/mm3 (0.9-3.2); Lymphocytes Percent Auto 27.1 % (18.3-44.2); Mean Corpuscular HGB Conc 32.6 g/dl (32-36); Mean Corpuscular Hemoglobin 30.1 pg (26-34); Mean Corpuscular Volume 92.2 fl (80-100); Mean Platelet Volume 10.2 fl (7.4-10.4); Monocytes Absolute Auto 0.6 K/mm3 (0.1-0.6); Monocytes Percent Auto 10.3 % (2.6-8.5); Neutrophils Absolute Auto 3.7 K/mm3 (1.3-6.7); Neutrophils Percent Auto 59.4 % (45.5-73.1); Platelet Count Result 271 k/mm3 (150-375); Red Blood Count 5.39 M/mm3 (4.6-6.20); Red Cell Distribution Width 12.5 % (11.5-14.5); White Blood Count 6.2 K/mm3 (4.5-10.0)
[2023-04-29 17:07] LABS: Creatinine Urine 84.7 mg/dL
[2023-04-29 17:19] LABS: Alanine Aminotransferase 79 U/L (6-50); Albumin Level 4.3 g/dL (3.5-5.1); Alkaline Phosphatase 83 U/L (38-126); Anion Gap 8 mmol/L (8-16); Aspartate Amino Transferase 87 U/L (17-59); Bilirubin,Total 0.5 mg/dL (0.2-1.3); Blood Urea Nitrogen 15 mg/dL (9-20); Calcium 9.4 mg/dL (8.4-10.2); Carbon Dioxide 29 mmol/L (22-30); Chloride 103 mmol/L (98-107); Cholesterol 132 mg/dL (0-200); Estimated Glomerular Filt Rate > 60; Glucose 122 mg/dL (65-110); HDL Direct 29 mg/dL; Sodium 140 mmol/L (137-145); Triglycerides 153 mg/dL (<150)
[2023-04-29 17:24] LABS: MALB Creatinine Ratio < 7.1 mg/g (0-30); Microalbumin Urine Random < 6.0 mg/L (0-16.7)
[2023-04-29 17:31] LABS: LDL Cholesterol Direct 84 mg/dL
[2023-04-29 17:49] LABS: Prostate Specific Antigen 0.2 ng/mL (< OR = 4.0)
== END 2023-04-29 08:57 | disposition home or self-care (01) ==
PROVIDERS: PCP Family Medicine; Visit Provider Family Medicine
DX: Z00.00 Encounter for general adult medical examination without abnormal findings (principal); E78.5 Hyperlipidemia, unspecified; I10 Essential (primary) hypertension; E53.8 Deficiency of other specified B group vitamins; E55.9 Vitamin D deficiency, unspecified; E11.9 Type 2 diabetes mellitus without complications; Z12.5 Encounter for screening for malignant neoplasm of prostate
CPT/HCPCS: 36415; 80053; 80061; 82043; 82306; 82607; 84153; 84443; 85025; G0103

== ENCOUNTER 2024-04-20 13:22 | Outpatient (CLI) | payer OTHER, SELFPAY ==
--- OUTSIDE RECORDS SUMMARY | 2024-04-20 15:56 | XMS_ITS | Referral Summary ---
Author Organization [facility] Address [address] 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 This disclosure is being madepursuant to the Care Everywhere program and may not contain all informatio navailable regarding this patient. Last updated 17.[facility] Allergies No known active allergies Medications * Be aware that medications may not be up to date on this document. Alwaysverify current medications with the patient. Medication Sig Dispensed Refills Start Date End Date Status ATORVASTATIN CALCIUM PO Active METFORMIN HCL PO Active Niacin-Lovastatin (ADVICOR PO) Active aspirin (ASPIRIN 81) 81 MG chew tablet Take 81 mg by mouth once daily Active IRBESARTAN PO Active Canagliflozin (INVOKANA PO) Active GLIPIZIDE PO Active omeprazole (PRILOSEC) 40 MG capsule Take 40 mg by mouth daily before breakfast Active [place]-3 Fatty Acids (OMEGA-3 FISH OIL PO) Act darrell METFORMIN HCL PO Active IRBESARTAN PO Active atorvastatin (LIPITOR) 10 MG tablet Take 10 mg by mouth at bedtime Active CREAM BASE NIOSOMES EX Ac tive glipiZIDE CR 24hr (GLIPIZIDE XL) 10 MG tablet Take 10 mg by mouth daily before breakfast Active ASPIRIN 81 PO Active ibuprofen (MOTRIN) 800 MG tablet Take 800 mg by mouth every 6 hours as needed for Pain Active Multiple Vitamins-Minerals (MENS MULTIVITAMIN PO) Ac tive biotin 5 MG tablet Take 5 mg by mouth once daily Active [place]-3 1000 MG Active Active Problems No known active problems Social History Tobacco Use Types Packs/Day Years Used Date Smoking Tobacco: Never Smokeless Tobacco: Never Alcohol Use Standard Drinks/Week Comments Never 0 (1 standard drink = 0.6 oz pur e alcohol) AUDIT-C Answer Date Recorded Q1: How often do you have a drink containing alc ohol? 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 Oxygen Saturation 96% 03/06/2020 2:57 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
--- OUTSIDE RECORDS SUMMARY | 2024-04-20 15:56 | XMS_ITS | Clinical Summary ---
Author Organization [facility] Address [address] [place] [address] Care Team Providers Care Bend Up Name Role Phone David Wan MD Primary Care Provider [phone] David Wan MD Unavailable [phone] Source Comments [facility],non-owned Affiliates and Associated Physician Practices is amultiple site organization consisting of ambulatory clinics and hospital sitesin [place], [place], [place] and [place]. This disclosure is being madepursuant to the Care Everywhere program and may not contain all information available regarding this patient. Last updated 17.[facility] Allergies No known active allergies Medications * [...] mg by mouth daily before breakfast Active [place]-3 Fatty Acids (OMEGA-3 FISH OIL PO) Act [...] 5 mg by mouth once daily Active [place]-3 1000 MG Active Active Problems No known active problems Family History Medical History Relation Name Comments COPD - Chronic Obstructive Pulmonary Disease Father Cancer - Breast Mother Cancer - Colon Mother Relation Name Status Comments Father Mother Social History Tobacco Use Types Packs/Day Years [...] Comments Blood Pressure 146/84 03/06/2020 2:57 PM INFORMATION SERVICES VICE PRESIDENT Pulse 77 03/06/2020 2:57 PM INFORMATION SERVICES VICE PRESIDENT Temperature 36.9 C (98.4 F) 03/06/2020 2:57 PM INFORMATION SERVICES VICE PRESIDENT Respiratory Rate 16 03/06/2020 2:57 PM INFORMATION SERVICES VICE PRESIDENT Oxygen Saturation 96% 03/06/2020 2:57 PM INFORMATION SERVICES VICE PRESIDENT Inhaled Oxygen Concentration - - Weight 87.5 kg (193 lb) 03/06/2020 2:57 PM INFORMATION SERVICES VICE PRESIDENT Height 180.3 cm (5' 11 ) 03/06/2020 2:57 PM INFORMATION SERVICES VICE PRESIDENT Body Mass Index 26.92 03/06/2020 2:57 PM INFORMATION SERVICES VICE PRESIDENT Plan of Treatment Health Maintenance Due Date Last Done Comments COLOGUARD (AGES 45-75) - COL ON CA SCREENING 1968 COLON MONITORING 1968 COLONOSCOPY - COLON CA SCREENING 1968 CT COLONOGRAPHY - COLON CA SCREENING 1968 Colorectal Cancer Screening 1968 FIT - COLON CA SCREENING 1968 FLEX SIG - COLON CA SCREENING 1968 HIV SCREENING 01/08/1983 HEPATITIS C SCREENING 01/04/1986 DTAP/TDAP/TD VACCINES (1 - Tdap) 01/08/1987 HEPATITIS B VACCINE (1 of 3 - 19+ 3-dose series) 01/08/1987 PNEUMOCOCCAL VACCINE 50+ (1 of 1 - PCV) 01/08/2018 ZOSTER VACCINE (1 of 2) 01/08/2018 SCREENING FOR DIABETES 12/07/2018 COVID-19 VACCINE (3 - 2024-2 5 season) 2023 05/22/2020, 04/30/2020 INFLUENZA VACCINE (#1) 2023 DEPRESSION SCREENING 03/04/2024 HIB VACCINE Aged Out No longer eligi ble based on patient's age to complete this topic HPV VACCINE Aged Out No longer eligi ble based on patient's age to complete this topic MENINGOCOCCAL (Group B) VACCINE Aged Out No longer eligible b ased on patient's age to complete this topic MENINGOCOCCAL VACCINE Aged Out No camilo loreta eligible based on patient's age to complete this topic PNEUMOCOCCAL VACCINE Aged Out No long er eligible based on patient's age to complete this topic Care Teams Bend Up Relationship Specialty Start Date End Date David Wan MD [address] [place] [address] PCP - General 09/10/19 David Wan MD [address] [place] [address] Family Medicine 09/10/19
--- OUTSIDE RECORDS SUMMARY | 2024-04-20 15:56 | XMS_ITS | Clinical Summary ---
Author Organization [facility] Address [address], [address] [address] Phone Care Team Providers Care Professional Security Officer Name Role Phone Lamin Qiu DO Unavailable [phone] Henok Garcia MD Primary Care Provider Allergies No known active allergies Medications polyethylene glycol (MIRALAX) Powder Mix the entire bottle with 64 oz of a clear liquid. Use as directed by the office for colonoscopy prep. 255 g 0 6 Active Aspirin 81 MG Tablet Take 81 mg by mouth daily. Active niacin-lovastat in (ADVICOR) 1000-20 MG TABLET SR 24 HR Take 1 Tab by mouth daily. Active Ibuprofen (ADVIL PO) Take by mouth. Acti ve atorvastatin (LIPITOR) 20 MG Tablet Take 20 mg by mouth daily. Active metFORMIN (GLUCOPHAGE) 500 MG Tablet Take 500 mg by mouth 2 times daily (with meals). Active Family History Medical History Relation Name Comments Chronic Obstructive Pulmonary Disease Father Breast Cancer Mother Colon Cancer Mother Relation Name Status Comments Father Mother Social History Tobacco Use Types Packs/Day Years Used Date Smoking Tobacco: Never Alcohol Use Standard Drinks/Week Comments No 0 (1 standard drink = 0.6 oz pur e alcohol) Sex and Gender Information Value Date Recorded Sex Assigned at Not on file Legal Sex Male 12:15 AM CDT Gender Identity Not on file Sexual Orientation Not on file Plan of Treatment Health Maintenance Due Date Last Done Comments Hepatitis C Virus (HCV) Screening 1968 TdaP Immunization 1968 Hepatitis B Immunization (1 of 3 - 19+ 3-dose series) 01/08/1987 Cologuard 01/08/2018 Immunochemical Fecal Occult Blood 01/08/2018 Pneumococcal Immunization (5 0+ years) (1 of 1 - PCV) 01/08/2018 Zoster Immunization (1 of 2) 01/08/2018 PSA Discussion 01/08/2023 Influenza Immunization (#1) 2023 SARS-COV-2 Immunization ( - season) 2023 Colonoscopy 12/18/2025 12/19/2015 Colorectal Cancer Screening 12/18/2025 Respiratory Syncytial Virus (RSV) Immunization (Adult) (1 - 1-dose 75+ series) 01/08/2043 12/19/2015 Meningococcal Immunization (ACWY) Aged Out No longer eligible based on patient's age to complete this topic Pneumococcal Immunization Combined Aged Out No longer eligible based on patient's age to complete this topic Rotavirus Immunization Aged Out No lo nger eligible based on patient's age to complete this topic Procedures Procedure Name Priority Date/Time Associated Diagnosis Comments COLONOSCOPY Routine 12/19/2015 from Last 3 Months or Most Recently Relevant to Health Maintenance Results * HM COLONOSCOPY (12/19/2015) David Wan MD PROCEDURE/MINOR SURGICAL ORDSavita ARCHULETA Final Result from Last 3 Months or Most Recently Relevant to Health Maintenance Care Teams Professional Security Officer Relationship Specialty Start Date End Date Henok Garcia MD PCP - General Family Medicine 08/22/20 Lamin Qiu DO Gastroenterology 12/21/15
--- OUTSIDE RECORDS SUMMARY | 2024-04-20 15:56 | XMS_ITS | Patient Health Summary ---
Author Organization [facility] Address [address] [place] [address] Care Team Providers Care Cotton Bag Clipper Name Role Phone David Wan MD Primary Care Provider [phone] David Wan MD Unavailable [phone] Note from [facility],non-owned Affiliates and Associated Physician Practices is amultiple site organization consisting of ambulatory clinics and hospital sitesin [place], [place], [place] and [place]. This disclosure is being madepursuant to the Care Everywhere program and may not contain all information available regarding this patient. Last updated 17.[facility] Allergies No known active allergies Medications * Be aware that medications may not be up to date on this document. Alwaysverify current medications with the patient. * ATORVASTATIN CALCIUM PO * METFORMIN HCL PO * Niacin-Lovastatin (ADVICOR PO) * aspirin (ASPIRIN 81) 81 MG chew tablet Take 81 mg by mouth once daily * IRBESARTAN PO * Canagliflozin (INVOKANA PO) * GLIPIZIDE PO * omeprazole (PRILOSEC) 40 MG capsule Take 40 mg by mouth daily before breakfast * [place]-3 Fatty Acids (OMEGA-3 FISH OIL PO) * METFORMIN HCL PO * IRBESARTAN PO * atorvastatin (LIPITOR) 10 MG tablet Take 10 mg by mouth at bedtime * CREAM BASE NIOSOMES EX * glipiZIDE CR 24hr (GLIPIZIDE XL) 10 MG tablet Take 10 mg by mouth daily before breakfast * ASPIRIN 81 PO * ibuprofen (MOTRIN) 800 MG tablet Take 800 mg by mouth every 6 hours as needed for Pain * Multiple Vitamins-Minerals (MENS MULTIVITAMIN PO) * biotin 5 MG tablet Take 5 mg by mouth once daily * [place]-3 1000 MG Active Problems No known active problems Social [...] Comments Blood Pressure 146/84 03/06/2020 2:57 PM HAND ALMOND BLANCHER Pulse 77 03/06/2020 2:57 PM HAND ALMOND BLANCHER Temperature 36.9 C (98.4 F) 03/06/2020 2:57 PM HAND ALMOND BLANCHER Respiratory Rate 16 03/06/2020 2:57 PM HAND ALMOND BLANCHER Oxygen Saturation 96% 03/06/2020 2:57 PM HAND ALMOND BLANCHER Inhaled Oxygen Concentration - - Weight 87.5 kg (193 lb) 03/06/2020 2:57 PM HAND ALMOND BLANCHER Height 180.3 cm (5' 11 ) 03/06/2020 2:57 PM HAND ALMOND BLANCHER Body Mass Index 26.92 03/06/2020 2:57 PM HAND ALMOND BLANCHER Procedures * STREP A SCREEN - POINT OF CARE (AMB) STL(Performed 12/07/2018) Performed for Acute pharyngitis, unspecified etiology * CULTURE RESPIRATORY UPPER(Performed 12/07/2018) Performed for Acute pharyngitis, unspecified etiology Results * CULTURE RESPIRATORY UPPER (12/07/2018 10:27 AM CDT) Upper Respiratory Culture Final report [facility] ACCOUNT BILL Result 1 [facility] ACCOUNT BILL Comment:Routine respiratory krish Microbiology ENTIRE THROAT (SURFACE REGION OF NECK) / Unknown 12/07/2018 10:27 AM CDT 12/08/2018 Narrative Resulting Agency Comment [facility] [address] [phone] [facility] - MICROBIOLOG Y ORDERABLES [facility] ACCOUNT BILL [address] [place] [address] * STREP A SCREEN (12/07/2018 10:27 AM CDT) Strep A Rapid POCT Negative Negative Strep A Internal Control Present Lot # [id number] Expiration Date 03 03 2020 Throat ENTIRE THROAT (SURFACE REGION OF NECK) / Unknown 12/07/2018 10:27 AM CDT Dayanna Limon BREAKFAST AND ROOM ATTENDANT-[facility] - POINT OF CA RE ORDERABLES Care Teams Cotton Bag Clipper Relationship Specialty Start Date End Date David Wan MD [address] [place], [place] [id number] PCP - General 09/10/19 David Wan MD [address] [place] [address] Family Medicine 09/10/19
[2024-04-20 19:17] LABS: Alanine Aminotransferase 72 U/L (6-50); Albumin Level 4.7 g/dL (3.5-5.1); Alkaline Phosphatase 89 U/L (38-126); Anion Gap 10 mmol/L (4-12); Aspartate Amino Transferase 50 U/L (17-59); Bilirubin,Total 0.7 mg/dL (0.2-1.3); Blood Urea Nitrogen 16 mg/dL (9-20); Calcium 9.5 mg/dL (8.4-10.2); Carbon Dioxide 29 mmol/L (22-30); Chloride 100 mmol/L (98-107); Cholesterol 127 mg/dL (0-200); Estimated Glomerular Filt Rate > 60; Glucose 125 mg/dL (65-110); HDL Direct 29 mg/dL; Potassium 3.7 mmol/L (3.4-5.0); Sodium 139 mmol/L (137-145); Triglycerides 234 mg/dL (<150)
[2024-04-20 19:32] LABS: LDL Cholesterol Direct 78 mg/dL
[2024-04-20 19:56] LABS: MALB Creatinine Ratio < 10.9 mg/g (0-30); Microalbumin Urine Random < 6.0 mg/L (0-16.7)
== END 2024-04-20 13:23 | disposition home or self-care (01) ==
LOC: ANHGOSHLAB 13:24
PROVIDERS: PCP Family Medicine; Visit Provider Internal Medicine Endocrinology, Diabetes & Metabolism
DX: E11.9 Type 2 diabetes mellitus without complications (principal); E78.5 Hyperlipidemia, unspecified; K76.0 Fatty (change of) liver, not elsewhere classified; R79.89 Other specified abnormal findings of blood chemistry
CPT/HCPCS: 36415; 80053; 80061; 82043; 82306; 82607; 84443

== ENCOUNTER 2024-04-27 09:27 | Outpatient (CLI) | payer OTHER, SELFPAY ==
--- OUTSIDE RECORDS SUMMARY | 2024-04-27 10:07 | XMS_ITS | Clinical Summary ---
Author Organization [id number] Address [address] [place] [address] Care Team Providers Care Debt Management Counselor Name Role Phone David Wan MD Primary Care Provider [phone] David Wan MD Unavailable [phone] Source Comments [facility],non-owned Affiliates and Associated Physician Practices is amultiple site organization consisting of ambulatory clinics and hospital sitesin [place], [place] and [place]. This disclosure is being madepursuant to the Care Everywhere program and may not contain all information available regarding this patient. Last updated 17.[facility] Allergies No known active allergies Medications * [...] mg by mouth daily before breakfast Active [place]-3 Fatty Acids (OMEGA-3 FISH OIL PO) Act [...] 5 mg by mouth once daily Active [place]-3 1000 MG Active Active Problems No known [...] Comments Blood Pressure 146/84 03/06/2020 2:57 PM CADDIE SUPERVISOR Pulse 77 03/06/2020 2:57 PM CADDIE SUPERVISOR Temperature 36.9 C (98.4 F) 03/06/2020 2:57 PM CADDIE SUPERVISOR Respiratory Rate 16 03/06/2020 2:57 PM CADDIE SUPERVISOR Oxygen Saturation 96% 03/06/2020 2:57 PM CADDIE SUPERVISOR Inhaled Oxygen Concentration - - Weight 87.5 kg (193 lb) 03/06/2020 2:57 PM CADDIE SUPERVISOR Height 180.3 cm (5' 11 ) 03/06/2020 2:57 PM CADDIE SUPERVISOR Body Mass Index 26.92 03/06/2020 2:57 PM CADDIE SUPERVISOR Plan of Treatment Health Maintenance Due Date [...] age to complete this topic Care Teams Debt Management Counselor Relationship Specialty Start Date End Date David Wan MD [address] [place] [address] PCP - General 09/10/19 David Wan MD [address] [place] [address] Family Medicine 09/10/19
--- OUTSIDE RECORDS SUMMARY | 2024-04-27 10:07 | XMS_ITS | Clinical Summary ---
Author Organization [facility] Address [address], [address] [address] Phone Care Team Providers Care Value Advisor Name Role Phone Lamin Qiu DO Unavailable [phone] Henok Garcia MD Primary Care Provider [...] Recently Relevant to Health Maintenance Care Teams Value Advisor Relationship Specialty Start Date End Date Henok Garcia MD PCP - General Family Medicine 08/22/20 Lamin Qiu DO Gastroenterology 12/21/15
--- OUTSIDE RECORDS SUMMARY | 2024-04-27 10:07 | XMS_ITS | Patient Health Summary ---
Author Organization [facility] [employer] Address [address] [place] [address] Care Team Providers Care Label Fuser Tender Name Role Phone David Wan MD Primary Care Provider [phone] David Wan MD Unavailable [phone] Note from [facility],non-owned Affiliates and Associated Physician Practices is amultiple site organization consisting of ambulatory clinics and hospital sitesin [place], [place] and [place]. This disclosure is being madepursuant to the Care Everywhere program and may not contain all information available regarding this patient. Last updated 17.[facility] Allergies No known active allergies Medications * [...] mg by mouth daily before breakfast * [place]-3 Fatty Acids (OMEGA-3 FISH OIL PO) * [...] 5 mg by mouth once daily * [place]-3 1000 MG Active Problems No known active [...] Comments Blood Pressure 146/84 03/06/2020 2:57 PM PLANT CHANGER Pulse 77 03/06/2020 2:57 PM PLANT CHANGER Temperature 36.9 C (98.4 F) 03/06/2020 2:57 PM PLANT CHANGER Respiratory Rate 16 03/06/2020 2:57 PM PLANT CHANGER Oxygen Saturation 96% 03/06/2020 2:57 PM PLANT CHANGER Inhaled Oxygen Concentration - - Weight 87.5 kg (193 lb) 03/06/2020 2:57 PM PLANT CHANGER Height 180.3 cm (5' 11 ) 03/06/2020 2:57 PM PLANT CHANGER Body Mass Index 26.92 03/06/2020 2:57 PM PLANT CHANGER Procedures * STREP A SCREEN - POINT [...] Resulting Agency Comment [facility]: [facility] [address] [id number] [facility] - MICROBIOLOG Y ORDERABLES [facility] ACCOUNT BILL [address] [place] [address] * STREP A SCREEN (12/07/2018 10:27 AM CDT) Strep A Rapid POCT Negative Negative Strep A Internal Control Present Lot # [id number] Expiration Date 03 03 2020 Throat ENTIRE THROAT (SURFACE REGION OF NECK) / Unknown 12/07/2018 10:27 AM CDT Dayanna Limon SWING RIDE OPERATOR-[facility]ING [facility] - POINT OF CA RE ORDERABLES Care Teams Label Fuser Tender Relationship Specialty Start Date End Date David Wan MD [address] [place], [place] [id number] PCP - General 09/10/19 David Wan MD [address] [place] [address] Family Medicine 09/10/19
--- OUTSIDE RECORDS SUMMARY | 2024-04-27 10:07 | XMS_ITS | Referral Summary ---
Author Organization [facility] Address [address] [place] [address] Care Team Providers Care Grey Iron Molder Name Role Phone David Wan MD Primary Care Provider [phone] David Wan MD Unavailable [phone] Source Comments [facility],non-owned Affiliates and Associated Physician Practices is amultiple site organization consisting of ambulatory clinics and hospital sitesin [place], [place], [place] and [place]. This disclosure is being madepursuant to the Care Everywhere program and may not contain all informatio navailable regarding this patient. Last updated 17.[facility] Allergies No known active allergies Medications * [...] mg by mouth daily before breakfast Active [place]-3 Fatty Acids (OMEGA-3 FISH OIL PO) Act [...] 5 mg by mouth once daily Active [place]-3 1000 MG Active Active Problems No known [...] Comments Blood Pressure 146/84 03/06/2020 2:57 PM MANAGER PARK Pulse 77 03/06/2020 2:57 PM MANAGER PARK Temperature 36.9 C (98.4 F) 03/06/2020 2:57 PM MANAGER PARK Respiratory Rate 16 03/06/2020 2:57 PM MANAGER PARK Oxygen Saturation 96% 03/06/2020 2:57 PM MANAGER PARK Inhaled Oxygen Concentration - - Weight 87.5 kg (193 lb) 03/06/2020 2:57 PM MANAGER PARK Height 180.3 cm (5' 11 ) 03/06/2020 2:57 PM MANAGER PARK Body Mass Index 26.92 03/06/2020 2:57 PM MANAGER PARK Plan of Treatment Not on file Care Teams Grey Iron Molder Relationship Specialty Start Date End Date David Wan MD [address] [place] [address] PCP - General 09/10/19 David Wan MD [address] [place] [address] Family Medicine 09/10/19
[2024-04-27 12:33] LABS: Basophils Absolute Auto 0.1 K/mm3 (0.0-0.1); Basophils Percent Auto 0.9 % (0.2-1.2); Eosinophils Percent Auto 0.5 % (0-4.4); Hematocrit 53.7 % (42.0-52.0); Hemoglobin 17.9 g/dL (14.0-18.0); Immature Granulocyte Absolute 0.02 K/mm3 (0.00-0.031); Immature Granulocyte Percent A 0.3 % (0-0.5); Lymphocytes Percent Auto 20.5 % (18.3-44.2); Mean Corpuscular HGB Conc 33.3 g/dl (32-36); Mean Corpuscular Hemoglobin 30.3 pg (26-34); Mean Platelet Volume 10.7 fl (7.4-10.4); Monocytes Absolute Auto 0.6 K/mm3 (0.1-0.6); Monocytes Percent Auto 9.1 % (2.6-8.5); Neutrophils Absolute Auto 4.4 K/mm3 (1.3-6.7); Neutrophils Percent Auto 68.7 % (45.5-73.1); Platelet Count Result 260 k/mm3 (150-375); Red Cell Distribution Width 12.6 % (11.5-14.5); White Blood Count 6.4 K/mm3 (4.5-10.0)
[2024-04-27 12:44] LABS: Prostate Specific Antigen 0.3 ng/mL (< OR = 4.0)
== END 2024-04-27 09:28 | disposition home or self-care (01) ==
PROVIDERS: PCP Family Medicine; Visit Provider Family Medicine
DX: Z00.00 Encounter for general adult medical examination without abnormal findings (principal); E11.9 Type 2 diabetes mellitus without complications; K76.0 Fatty (change of) liver, not elsewhere classified; E78.5 Hyperlipidemia, unspecified; Z12.5 Encounter for screening for malignant neoplasm of prostate
CPT/HCPCS: 36415; 84153; 85025; G0103

== ENCOUNTER 2024-10-03 11:56 | Emergency (ER) | payer OTHER, SELFPAY ==
[2024-10-03 12:16] VITALS: BP 105/74; PULSE 83; RESP 16; TEMP 36.6; O2SAT 99
[2024-10-03 12:48] LABS: EDUAAPPEAR Clear; EDUABILI Negative (Negative); EDUABLOOD Trace (Negative); EDUACOLOR1 Yellow; EDUAGLUCOSE 3+ (Negative); EDUAKETONE Negative (Negative); EDUALEUKO Negative (Negative); EDUANITRATE Negative (Negative); EDUAPH 5.5; EDUAPROTEIN Negative (Negative); EDUASPGRAVITY 1.010; EDUAUROBILI 0.2
--- NOTE | 2024-10-03 12:55 | ED_ITS ---
HPI - Male Genitourinary General Chief complaint: Urogenital-Male Stated complaint: Uti Symptoms Time Seen by Provider: 10/03/24 12:39 Source: patient and RN notes reviewed Mode of arrival: ambulatory Limitations: no limitations History of Present Illness HPI Narrative: Patient presents today with a 3 day history of urinary frequency, slight dysuria, and suprapubic discomfort. He has a history of frequent UTIs while he was on Invokana for his diabetes, but after switching over to Farxiga, this has decreased significantly. Patient takes erythromycin twice daily for his gastroparesis as well. Patient states sugars have been within range today. Related Data Home Medications ?Medication ?Instructions ?Recorded ?Confirmed ?Last Taken ?Type ibuprofen 200 mg-diphenhydramine 1 cap PO HS Sleep 08/28/21 10/03/24 Unknown History HCl 25 mg capsule (Ibuprofen PM) cholecalciferol (vitamin D3) 125 125 mcg PO .qod 02/04/24 10/03/24 Unknown History mcg (5,000 unit) capsule Allergies Allergy/AdvReac Type Severity Reaction Status Date / Time amoxicillin (From Augmentin) AdvReac Rash Verified 10/03/24 12:37 clavulanic acid (From AdvReac Rash Verified 10/03/24 12:37 Augmentin) [facility] Past Medical History Medical History COVID-19 (~07/2023) Chronic low back pain Fracture of superior cornu of thyroid cartilage (~12/2022) Adhesive capsulitis of left shoulder (~12/2022) improved with therapy Diverticulosis Low vitamin D level Diabetic gastroparesis Family history of colon cancer in mother Epidermal cyst Lipoma GERD (gastroesophageal reflux disease) (Unknown) Essential (primary) hypertension (Unknown) Type 2 diabetes mellitus without complication, without long-term current use of insulin (Unknown) Ingrown right greater toenail Dyslipidemia Alopecia areata Surgical History Surgical History History of epidermal inclusion cyst excision 09/2019 - left scalp S/P excision of lipoma 09/2019 - upper back Hx of colonoscopy (Unknown) x2 Family History Family History Grandparent Hypertension Family history of cardiovascular disease Family history of Alzheimer's disease Mother Carcinoma of colon, Onset Age: 57 Family history of malignant neoplasm of breast in first degree relative, Onset Age: 50 Hypertension Breast cancer Father COPD (chronic obstructive pulmonary disease) Hypertension Sibling No problems noted. 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 Please see nursing chart for further information. There is no relevant family history pertinent to the presenting complaint Exam Narrative: GENERAL: Well-appearing, well-nourished, and in no acute distress. HEAD: Normocephalic, atraumatic. EYES: EOMI. No redness or drainage. Conjunctivae normal. ENT: Mucous membranes pink and moist. NECK: Normal AROM. CHEST: No respiratory distress. Clear to auscultation. HEART: Regular rate and rhythm. No murmur appreciated. Normal peripheral pulses. ABDOMEN: Soft, nondistended, normal active bowel sounds.+ mildly tender suprapubic area EXTREMITIES: Normal range of motion. No edema. SKIN: Warm, dry, no rash. Capillary refill normal. Normal skin turgor. NEURO: No focal deficits. Alert and oriented x3. Gait steady. PSYCH: Normal affect. No signs of depression or anxiety. Course Course Level of Care: Express Care Visit Vital Signs Vital signs: Vital Signs Temperature 97.9 F 10/03/24 12:16 Pulse Rate 83 10/03/24 12:16 Respiratory Rate 16 10/03/24 12:16 Blood Pressure 105/74 10/03/24 12:16 Pulse Oximetry 99 10/03/24 12:16 Temperature 97.9 F 10/03/24 12:16 Pulse Rate 83 10/03/24 12:16 Respiratory Rate 16 10/03/24 12:16 Blood Pressure 105/74 10/03/24 12:16 Pulse Oximetry 99 10/03/24 12:16 Reviewed MDM - Male Genitourinary MDM Narrative Medical decision making narrative: 54-year-old male patient with a history of diabetes and gastroparesis presents today with urinary frequency, suprapubic discomfort, and dysuria for 2 days. Upon exam, patient has some slight suprapubic tenderness, but is otherwise unremarkable. Urinalysis shows 3+ glucose and trace blood. Culture pending. He will be treated with a course of cephalexin. Patient states he has had a lot of success in the past with doxycycline, due to being in the summer months with kate weather and risk of photosensitivity, will hold off on the doxycycline at this time. Recommend PCP follow-up if symptoms persist. Strict ED precautions given. Differential Diagnosis Differential diagnosis: Likely urinary tract infection and other (Pyelonephritis) Lab Data Attestation: I reviewed the patient's lab results. Labs: Lab Results 10/03/24 Range/Units 12:45 POC Urine Color Yellow POC Urine Clarity Clear POC Urine pH 5.5 POC Ur Specif [place] 1.010 POC Urine Protein Negative (Negative) POC Ur Glucose (UA) 3+ (Negative) POC Urine Ketones Negative (Negative) POC Urine Blood Trace (Negative) POC Urine Nitrite Negative (Negative) POC Urine Bilirubin Negative (Negative) POC Urine Urobilinogen 0.2 POC U Leukocyte Esteras Negative (Negative) Critical Care Time Critical Care Time Critical Care Time: No Discharge Plan Discharge Clinical Impression: Urinary tract infection Qualifiers: Urinary tract infection type: acute cystitis Hematuria presence: with hematuria Qualified Code(s): N30.01 - Acute cystitis with hematuria Patient Disposition: Home Condition: Stable Instructions: Antibiotic Form, Urinary Tract Infection in Men (ED) Additional Instructions: Your urine shows infection today. Take cephalexin as prescribed until gone. Your urine will be sent of for a culture to identify what type of bacteria is causing your infection. If the culture shows that your medication will not get rid of your infection, you will be notified and a new antibiotic will be called in for you. If your symptoms worsen to include fever, sweats, chills, nausea, vomiting, severe abdominal or back pain, please go to the ER for further evaluation. Patient Language: Lebanese Prescriptions: New cephalexin 500 mg capsule 500 mg PO BID 7 Days Qty: 14 0RF No Action cholecalciferol (vitamin D3) 125 mcg (5,000 unit) capsule 125 mcg PO .qod metformin 500 mg tablet extended release 24 hr 1,000 mg PO BID 90 Days Qty: 360 3RF atorvastatin 20 mg tablet 20 mg PO QHS Qty: 90 2RF Farxiga 10 mg tablet 10 mg PO DAILY 90 Days Qty: 90 3RF (DME) FreeStyle Alexa 3 Plus Sensor Device See Rx Instructions .Route Qty: 6 3RF Rx Instructions: change sensor every 14 days (DME) blood-glucose meter [Blood Glucose Monitoring] Kit See Rx Instructions .ROUTE .MEDSUPPLY Qty: 1 0RF Rx Instructions: As directed (DME) Blood Glucose Test Strip See Rx Instructions .ROUTE .MEDSUPPLY Qty: 100 3RF Rx Instructions: check daily (DME) lancets [Lancets, Super Thin] Misc See Rx Instructions .ROUTE .MEDSUPPLY Qty: 100 3RF Rx Instructions: check daily losartan-hydrochlorothiazide 100-25 mg tablet 1 tablet PO DAILY Qty: 90 1RF Ibuprofen PM 200-25 mg capsule 1 cap PO HS omega-3 acid ethyl esters [Lovaza] 1 gram capsule 2 cap PO BID 90 Days Qty: 360 1RF sitagliptin [Zituvio] 100 mg tablet 100 mg PO DAILY Qty: 90 1RF omeprazole 40 mg capsule,delayed release(DR/EC) See Rx Instructions .ROUTE .COMPLEX Qty: 90 3RF Dose Instruction: TAKE 1 CAPSULE BY MOUTH ONCE DAILY NEEDED Rx Instructions: TAKE 1 CAPSULE BY MOUTH ONCE DAILY NEEDED erythromycin 250 mg tablet See Rx Instructions .ROUTE .COMPLEX Qty: 180 3RF Dose Instruction: Take 1 tablet by mouth twice daily Rx Instructions: Take 1 tablet by mouth twice daily Follow-up/Referrals: Nestor Garcia MD [Primary Care Provider] - Time of Disposition: 13:00
== END 2024-10-03 13:02 | disposition home or self-care (01) ==
PROVIDERS: Emergency Provider Nurse Practitioner; PCP Family Medicine
DX: N30.01 Acute cystitis with hematuria (principal); E11.43 Type 2 diabetes mellitus with diabetic autonomic (poly)neuropathy; K31.84 Gastroparesis; Z79.84 Long term (current) use of oral hypoglycemic drugs; I10 Essential (primary) hypertension; E78.5 Hyperlipidemia, unspecified; L63.9 Alopecia areata, unspecified; E55.9 Vitamin D deficiency, unspecified; Z86.16 Personal history of COVID-19
CPT/HCPCS: 81003; 87086; 99213; G0463

== ENCOUNTER 2024-10-07 10:39 | Outpatient (CLI) | payer OTHER, SELFPAY ==
--- OUTSIDE RECORDS SUMMARY | 2024-10-07 11:14 | XMS_ITS | Clinical Summary ---
Author Organization [facility] Address [address] [place] [address] Care Team Providers Care Medical Registrar Name Role Phone David Wan MD Primary Care Provider [phone] David Wan MD Unavailable [phone] Source Comments [facility],non-owned Affiliates and Associated Physician Practices is amultiple site organization consisting of ambulatory clinics and hospital sitesin [place], [place], [place] and [place]. This disclosure is being madepursuant to the Care Everywhere program and may not contain all information available regarding this patient. Last updated 17.[facility] Allergies No known active allergies Medications * Be aware that medications may not be up to date on this document. Alwaysverify current medications with the patient. ATORVASTATIN CALCIUM PO Active METFORMIN HCL PO Act darrell Niacin-Lovastatin (ADVICOR PO) Active aspirin (ASPIRIN 81) 81 MG chew tablet Take 81 mg by mouth once daily Active IRBESARTAN PO Active Canagliflozin (INVOKANA PO) Active GLIPIZIDE PO Active omeprazole (PRILOSEC) 40 MG capsule Take 40 mg by mouth daily before breakfast Active [place]-3 Fatty Acids (OMEGA-3 FISH OIL PO) Active METFORMIN HCL PO Act darrell IRBESARTAN PO Active atorvastatin (LIPITOR) 10 MG tablet Take 10 mg by mouth at bedtime Active CREAM BASE NIOSOMES EX Active glipiZIDE CR 24hr (GLIPIZIDE XL) 10 MG tablet Take 10 mg by mouth daily before breakfast Active ASPIRIN 81 PO Active ibuprofen (MOTRIN) 800 MG tablet Take 800 mg by mouth every 6 hours as needed for Pain Active Multiple Vitamins-Minerals (MENS MULTIVITAMIN PO) Act darrell biotin 5 MG tablet Take 5 mg by mouth once daily Active [place]-3 1000 MG Acti ve Active Problems No known active problems Family [...] at Not on file Legal Sex Male 4:18 PM CDT Gender Identity Not on file Sexual Orientation Not on file Last Filed Vital Signs Vital Sign Reading Time Taken Comments Blood Pressure 146/84 03/06/2020 2:57 PM PHLEBOTOMIST 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 Pulse 77 03/06/2020 2:57 PM PHLEBOTOMIST 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 Temperature 36.9 C (98.4 F) 03/06/2020 2:57 PM PHLEBOTOMIST 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 Respiratory Rate 16 03/06/2020 2:57 PM PHLEBOTOMIST 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 Oxygen Saturation 96% 03/06/2020 2:57 PM PHLEBOTOMIST 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 Inhaled Oxygen Concentration - - Weight 87.5 kg (193 lb) 03/06/2020 2:57 PM PHLEBOTOMIST 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 Height 180.3 cm (5' 11) 03/06/2020 2:57 PM PHLEBOTOMIST 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 Body Mass Index 26.92 03/06/2020 2:57 PM PHLEBOTOMIST 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 Plan of Treatment Health Maintenance Due Date [...] SCREENING FOR DIABETES 12/07/2018 COVID-19 VACCINE (3 2023-2 5 season) 2023 05/22/2020, 04/30/2020 DEPRESSION SCREENING 03/04/2024 INFLUENZA VACCINE (#1) 2024 HIB VACCINE Aged Out No longer eligi ble based on patient's age to complete this topic HPV VACCINE Aged Out No longer eligi ble based on patient's age to complete this topic MENINGOCOCCAL (Group B) VACCINE SHARED DECISION-MAKING Aged Out No longer eligible based on patient's age to complete this topic MENINGOCOCCAL GROUPS A/C/Y/W VACCINE Aged Out No longer eligible b ased on patient's age to complete this topic Insurance [facility] Care Teams Medical Registrar Relationship Specialty Start Date End Date David Wan MD [address] [place] [id number] PCP - General 09/10/19 David Wan MD [address] [place] [address] Family Medicine 09/10/19
--- OUTSIDE RECORDS SUMMARY | 2024-10-07 11:14 | XMS_ITS | Clinical Summary ---
Author Organization [facility] Address [address], [address] [address] Phone Care Team Providers Care Franchise Consultant Name Role Phone Lamin Qiu DO Unavailable [phone] Henok Garcia MD Primary Care Provider Allergies [...] 3 - 19+ 3-dose series) 01/08/1987 Cologuard 01/08/2013 Immunochemical Fecal Occult Blood 01/08/2013 Pneumococcal Immunization (5 0+ years) (1 of 1 - PCV) 01/08/2018 Zoster Immunization (1 of 2) 01/08/2018 SARS-COV-2 Immunization (1 - season) 2023 Influenza Immunization (#1) 2024 Colonoscopy 12/18/2025 12/19/2015 Colorectal Cancer Screening 12/18/2025 Respiratory Syncytial Virus (RSV) Immunization (Adult) (1 - 1-dose 75+ series) 01/08/2043 Human Papillomavirus (HPV) Immunization Aged Out No longer eligible b ased on patient's age to complete this topic Meningococcal Immunization (ACWY) Aged Out No longer [...] Recently Relevant to Health Maintenance Care Teams Franchise Consultant Relationship Specialty Start Date End Date Henok Garcia MD PCP - General Family Medicine 08/22/20 Lamin Qiu DO Gastroenterology 12/21/15
[2024-10-07 18:20] LABS: Alanine Aminotransferase 62 U/L (6-50); Albumin Level 4.9 g/dL (3.5-5.1); Alkaline Phosphatase 67 U/L (38-126); Anion Gap 8 mmol/L (4-12); Aspartate Amino Transferase 67 U/L (17-59); Bilirubin,Total 1.3 mg/dL (0.2-1.3); Blood Urea Nitrogen 14 mg/dL (9-20); Calcium 9.7 mg/dL (8.4-10.2); Carbon Dioxide 32 mmol/L (22-30); Chloride 98 mmol/L (98-107); Cholesterol 124 mg/dL (0-200); Estimated Glomerular Filt Rate > 60; Glucose 110 mg/dL (65-110); HDL Direct 30 mg/dL; Potassium 4.2 mmol/L (3.4-5.0); Sodium 138 mmol/L (137-145); Total Protein 8.1 g/dL (6.3-8.2); Triglycerides 106 mg/dL (<150)
== END 2024-10-07 10:40 | disposition home or self-care (01) ==
LOC: ANHGOSHLAB 10:40
PROVIDERS: PCP Family Medicine; Visit Provider Internal Medicine Endocrinology, Diabetes & Metabolism
DX: E78.5 Hyperlipidemia, unspecified (principal); K76.0 Fatty (change of) liver, not elsewhere classified
CPT/HCPCS: 36415; 80053; 80061

== ENCOUNTER 2025-01-05 10:50 | Outpatient (CLI) | payer OTHER, SELFPAY ==
[2025-01-05 13:05] LABS: Hematocrit 50.4 % (42.0-52.0); Hemoglobin 17.2 g/dL (14.0-18.0); Mean Corpuscular HGB Conc 34.1 g/dl (32-36); Mean Corpuscular Hemoglobin 29.7 pg (26-34); Mean Corpuscular Volume 86.9 fl (80-100); Platelet Count Result 272 k/mm3 (150-375); Red Blood Count 5.80 M/mm3 (4.6-6.20); White Blood Count 5.3 K/mm3 (4.5-10.0)
[2025-01-05 13:16] LABS: Alanine Aminotransferase 59 U/L (6-50); Albumin Level 5.1 g/dL (3.5-5.1); Alkaline Phosphatase 70 U/L (38-126); Anion Gap 11 mmol/L (4-12); Aspartate Amino Transferase 72 U/L (17-59); Bilirubin,Total 1.1 mg/dL (0.2-1.3); Blood Urea Nitrogen 15 mg/dL (9-20); Calcium 9.4 mg/dL (8.4-10.2); Carbon Dioxide 28 mmol/L (22-30); Chloride 100 mmol/L (98-107); Estimated Glomerular Filt Rate > 60; Glucose 191 mg/dL (65-110); Potassium 3.9 mmol/L (3.4-5.0); Sodium 139 mmol/L (137-145); Total Protein 8.2 g/dL (6.3-8.2)
[2025-01-05 13:26] LABS: Immunoglobulin G 1090 mg/dL (700-1600)
[2025-01-05 13:27] LABS: INR 1.0; Prothrombin Time 13.4 Seconds (11.1-14.7)
[2025-01-05 14:04] LABS: Hepatitis B Surface Antigen Negative (Negative)
[2025-01-05 14:09] LABS: HAV RESULT Negative (Negative); Hepatitis B Core IgM Result Negative (Negative)
[2025-01-05 21:07] LABS: Iron 122 ug/dL (49-181)
[2025-01-05 21:20] LABS: Percent Iron Saturation 34 % (20-50)
[2025-01-05 21:42] LABS: Thyroid Stimulating Hormone Reflex 3.360 uIU/mL (0.465-4.68)
[2025-01-05 21:46] LABS: Ferritin 130.00 ng/mL (11.1-264)
[2025-01-06 09:39] LABS: Hep A Ab, Total Negative
[2025-01-06 09:42] LABS: Hep B Core Ab, Total Negative
[2025-01-06 14:12] LABS: ANA by IFA Rfx Titer/Pattern Positive
== END 2025-01-05 10:51 | disposition home or self-care (01) ==
LOC: ANHGOSHLAB 10:51
PROVIDERS: PCP Family Medicine; Visit Provider Nurse Practitioner
DX: K76.0 Fatty (change of) liver, not elsewhere classified (principal); R74.8 Abnormal levels of other serum enzymes
CPT/HCPCS: 36415; 80053; 80074; 82103; 82390; 82728; 82784; 83540; 83550; 84443; 85027; 85610; 86015; 86038; 86376; 86381; 86704; 86708; 87340

== ENCOUNTER 2025-01-18 07:48 | Outpatient (CLI) | payer OTHER, SELFPAY ==
--- NOTE | ~2025-01-18 | US_ITS ---
ULTRASOUND ABDOMEN LIMITED (RIGHT UPPER QUADRANT) Clinical History: elevated LFTs Comparison: None Technique: Right upper quadrant sonography Findings: Liver: Normal size. Echogenic. No intrahepatic biliary ductal dilatation. Normal hepatopedal flow main portal vein. Common Duct: Normal caliber. 3 mm. Gallbladder: No stones. No wall thickening. No pericholecystic fluid. Pancreas: Obscured by bowel gas. IMPRESSION: 1. Hepatic steatosis and/or hepatocellular disease. 2. No acute findings. Reviewed, dictated and finalized at location [facility]
== END 2025-01-18 07:49 | disposition home or self-care (01) ==
PROVIDERS: PCP Family Medicine; Visit Provider Nurse Practitioner
DX: K76.0 Fatty (change of) liver, not elsewhere classified (principal); R74.8 Abnormal levels of other serum enzymes
CPT/HCPCS: 76705